=== PATIENT | male | born 1950 | race Caucasian/White ===

== ENCOUNTER → 2019-05-12 | Outpatient (CLI) | payer MEDICARE, OTHER ==
[~2019-05-12] MED LIST: ACETAMINOPHEN325 M1 PO; AMLODIPINE-BEN1 EAC1; LORATADINE10 MG PO; LOVASTATIN20 MG PO; LUMIGAN2.5 M1 EACH EAR; METOPROLOL SUCC25 MG; SYNTHROID200 MCG PO
[2019-05-12 09:38] LABS: CREATININE, SERUM 3.06 mg/dL (0.72-1.25)
--- NOTE | 2019-05-12 12:34 | Diagnostic Imaging Report ---
EXAM: CT Chest WITHOUT intravenous contrast 05/12/2019 8:58 AM INDICATION: Pleural plaque, asbestosis COMPARISON: None TECHNIQUE: Chest was scanned utilizing a multidetector helical scanner from the lung apex through the level of the adrenal glands without administration of IV contrast. Coronal and sagittal reformations were obtained. Routine protocol was performed. IV CONTRAST: None RADIATION DOSE: Total DLP: 549.6 mGy*cm. Dose modulation, iterative reconstruction, and/or weight based adjustment of the mA/kV was utilized to reduce the radiation dose to as low as reasonably achievable. COMPLICATIONS: None FINDINGS: LINES/ TUBES: None. LUNGS AND AIRWAYS: The central airways are patent. Left greater than right lower lobe bronchial wall thickening and areas of bronchiolar mucus plugging with scattered left greater than right ground glass opacities. PLEURA: Scattered bilateral pleural calcifications. No pleural-based mass. No pleural effusion or pneumothorax. HEART AND MEDIASTINUM: The thyroid gland is normal. No mediastinal, hilar or axillary lymphadenopathy. Tiny subcarinal calcified lymph nodes. Tiny right hilar calcified lymph node. The heart is normal in size.. There is no pericardial effusion. Mild scattered coronary artery atherosclerotic calcifications. UPPER ABDOMEN: 9 cm left upper quadrant cystic structure, likely renal in origin although the kidney is not visualized on this exam. No other acute findings. BONES: No acute osseous injury. No suspicious lytic or blastic lesions. Mild diffuse osteopenia and degenerative changes of the visualized spine. Anterior cervical discectomy and fusion hardware. SOFT TISSUES: Unremarkable. IMPRESSION: Left greater than right lower lobe bronchial wall thickening and areas of bronchiolar mucus plugging with scattered left greater than right groundglass airspace opacities. This is compatible with bronchitis and aspiration with possible superimposed infection. Scattered bilateral pleural calcifications. No pleural soft tissue mass. 9 cm left upper quadrant cystic structure, likely a renal cyst although the kidney is not visualized on this exam. Signed by: Troy Stoner MD on 05/12/2019 12:32 PM
== END ==
LOC: CT 08:52
PROVIDERS: ATTEND Family Medicine
DX: J92.9 Pleural plaque without asbestos (principal)
CPT/HCPCS: 36415; 71250; 82565; 84520